=== PATIENT | female | born 1970 | race Caucasian/White ===

== ENCOUNTER 2017-10-01 15:40 | Day surgery (SDC) | payer OTHER ==
[~2017-10-01 15:40] MED LIST: DEXAMETHASONE 4 MG/ML, 1ML ONE; ONDANSETRON 2MG/ML, 2ML ONE; PROPOFOL 10 MG/ML, 20ML ONE; ROCURONIUM 10MG/ML,5ML ONE; SUCCINYLCHOLINE 20 MG/ML, 10ML ONE
[2017-10-01 16:16] VITALS: BP 120/73
[2017-10-01] MEDS ORDERED: CEFAZOLIN 1,000 MG ONE (17:05)
[2017-10-01] MEDS ORDERED: GENTAMICIN 80 MG/2 ML ONE (17:05)
[2017-10-01] MEDS ORDERED: BACITRACIN 50,000 UNIT ONE (17:05)
[2017-10-01] MEDS ORDERED: MIDAZOLAM 1 MG/ML, 2ML ONE (17:09)
[2017-10-01] MEDS ORDERED: FENTANYL PF 250 MCG/5ML ONE (17:09)
[2017-10-01 17:45] LABS: HCG UR SG 1.024 (1.003-1.030)
[2017-10-01] MEDS ORDERED: KETOROLAC 30 MG/1 ML IV PRN (18:00)
[2017-10-01] MEDS ORDERED: LABETALOL 5MG/ML, 20ML IV PRN (18:00)
[2017-10-01] MEDS ORDERED: MEPERIDINE/PF 25MG/0.5ML IVPush PRN (18:00)
[2017-10-01] MEDS ORDERED: ALBUTEROL SULFATE 2.5 MG/3 ML NPPB PRN (18:00)
[2017-10-01] MEDS ORDERED: HYDROmorphone 1 MG/ML, 1ML IV PRN (18:00)
[2017-10-01] MEDS ORDERED: METOCLOPRAMIDE 5 MG/ML, 2ML IV PRN (18:00)
[2017-10-01] MEDS ORDERED: hydrALAzine 20 MG/ML, 1ML IV PRN (18:00)
[2017-10-01] MEDS ORDERED: OXYcodone 5 MG/5 ML ORAL.SOL UDC PO PRN (18:00)
[2017-10-01] MEDS ORDERED: ONDANSETRON 2MG/ML, 2ML IVPush PRN ×2 (18:00→20:00)
[2017-10-01] MEDS ORDERED: FENTANYL PF 100 MCG/2ML IV PRN (18:00)
[2017-10-01] MEDS ORDERED: PROMETHAZINE 25 MG/ML, 1ML IV PRN (18:00)
[2017-10-01] MEDS ORDERED: MEPERIDINE/PF 100 MG/ML ONE (18:26)
[2017-10-01] MEDS ORDERED: PLEASE ENTER HEIGHT AND WEIGHT MC SCH (18:30)
[2017-10-01] MEDS ORDERED: OXYcodone 5 MG/5 ML ORAL.SOL UDC ONE (18:46)
[2017-10-01] MEDS ORDERED: FENTANYL PF 100 MCG/2ML ONE (18:46)
[2017-10-01 19:45] VITALS: BP 105/61
[2017-10-01] MEDS ORDERED: LACTATED RINGERS 1,000 ML IV SCH (19:48)
[2017-10-01] MEDS ORDERED: morphine SULFATE 10 MG/ML, 1ML IVPush PRN (20:00)
[2017-10-01] MEDS ORDERED: DIPHENHYDRAMINE 50 MG/ML, 1ML IVPush PRN (20:00)
[2017-10-01] MEDS ORDERED: HYDROcodone/APAP 5/325 TABLET PO PRN (20:00)
[2017-10-01] MEDS ORDERED: IBUPROFEN 600 MG TABLET PO SCH (21:00)
[2017-10-01] MEDS ORDERED: AMOX1TAB64 PO (21:05)
[2017-10-01 21:15] VITALS: BP 98/49
== END 2017-10-01 21:30 | disposition home or self-care (01) ==
LOC: OR 15:40 → 4NOR 16:02 → OR 21:30
PROVIDERS: ATTEND Plastic Surgery
DX: T85.898A Other specified complication of other internal prosthetic devices, implants and grafts, initial encounter (principal); N64.1 Fat necrosis of breast; J45.909 Unspecified asthma, uncomplicated; Y83.8 Other surgical procedures as the cause of abnormal reaction of the patient, or of later complication, without mention of misadventure at the time of the procedure; Y82.9 Unspecified medical devices associated with adverse incidents; Y92.89 Other specified places as the place of occurrence of the external cause; Z98.51 Tubal ligation status; Z85.3 Personal history of malignant neoplasm of breast; Z90.13 Acquired absence of bilateral breasts and nipples; Z98.890 Other specified postprocedural states; Z79.899 Other long term (current) drug therapy; Z87.891 Personal history of nicotine dependence
CPT/HCPCS: 11971; 81025; 87070; 87075; 87205; C1729; J0330; J0690; J1100; J1580; J2175; J2250; J2405; J2704; J3010